=== PATIENT | female | born 1965 | race Caucasian/White ===

== ENCOUNTER 2016-05-02 18:07 | Inpatient (IN) | payer BC ==
[~2016-05-02] VITALS: Ht 154.9 cm; Wt 82.4 kg
[~2016-05-02 18:07] MED LIST: AMOXICILLIN500 M1 PO; AMOXICILLIN500 MG PO; ASPIR 8181 M1 PO; ASPIRIN E.C.81 M2 PO; ASPIRIN81 M1 PO; ATORVASTATIN CA20 MG PO; Aspirin E.C. PO; CINNAMON PLUS1 EACH PO; CIPRO500 MG PO; CRANBERRY500 M3 PO; Ceftin PO; ENDOCET 5-3251 EACH PO; FLONASE16 G1 BOTH NARES; FLOVENT 22120 INHALA IH; GLUCOTROL XL5 MG PO; GLUCOTROL5 MG PO; Glucophage PO; Glucotrol PO; INDOCIN25 MG PO; LEVAQUIN750 MG PO; LIPITOR40 MG PO; LISINOPRIL10 MG PO; LO-DOSE ASPIRIN81 M1 PO; Levaquin PO; MECLIZINE HCL25 MG PO; METFORMIN HCL1000 MG PO; METFORMIN HCL500 M4 PO; METFORMIN HCL500 MG PO; MUCUS ER600 MG PO; MUCUS RELIEF600 M1 PO; PAXIL20 MG PO; PRAVASTATIN SOD80 MG PO; PROTONIX40 MG PO; PROZAC10 MG PO; PYRIDIUM200 MG PO; Pravachol PO; ROBITUSSIN NIG118 ML PO; SIMVASTATIN40 MG PO; TESSALON PERLE100 MG PO; TRULICITY1.5 MG/0.5 SC; TYLENOL EXTRA500 MG PO; ULTRAM50 MG PO; Ultram PO; Vicodin,Lortab 5/500 PO; WOMEN'S DAILY1 EAC4 PO; ZESTRIL,PRINIVI10 M1 PO; ZESTRIL,PRINIVI10 MG PO; ZITHROMAX Z-PA250 MG PO; ZITHROMAX250 MG PO; ZOFRAN4 MG PO; Zocor PO
[2016-05-02 19:00] LABS: POINT-OF-CARE METER ID UU13113778
[2016-05-02 20:26] LABS: ADD MIUA? YES; BILIRUBIN NEGATIVE; BLOOD NEGATIVE; COLOR YELLOW ((YELLOW)); GLUCOSE (STRIP) NEGATIVE; KETONES TRACE; LEUKOCYTES MODERATE; NITRITE POSITIVE; PH, URINE 7.5 (5-8); PROTEIN (STRIP) 30; SPECIFIC GRAVITY 1.024 (1.000-1.030)
[2016-05-02 21:09] LABS: BACTERIA NONE SEEN; CASTS NONE SEEN /LPF; CRYSTALS NONE SEEN; EPITHELIAL CELLS NONE SEEN; MUCUS NONE SEEN; RED BLOOD CELLS NONE SEEN /HPF (0-5); UCUL ADDED? NO
[2016-05-02 21:23] LABS: HEMATOCRIT 44.3 % (36.0-46.0); MCH 31.5 PG (29.0-34.0); MCHC 34.1 G/DL (30.0-36.0); MCV 92.3 FL (83-99); MEAN PLAT.VOLUME 10.3 uM^3 (9.5-12.4); PLATELET COUNT 662 K/uL (156-360); RBC DIS.WIDTH-SD 45.3 % (39-53); WHITE BLOOD COUNT 26.8 K/uL (4.1-10.2)
[2016-05-02 21:28] LABS: CHLORIDE 95 mEq/L (99-109)
[2016-05-02 21:29] LABS: POTASSIUM 4.7 mEq/L (3.7-5.4); SODIUM 135 mEq/L (136-147)
[2016-05-02 21:31] LABS: GLUCOSE 225 mg/dL (70-99)
[2016-05-02 21:32] LABS: ANION GAP 14 MEQ/L (2-14)
[2016-05-02 21:33] LABS: TOTAL BILIRUBIN 0.7 mg/dL (0.0-1.0)
[2016-05-02 21:34] LABS: ALKALINE PHOSPHATASE 103 IU/L (3-129); GFR ESTIMATE (CALCULATED) > 59 mL/min/
[2016-05-02 21:35] LABS: UREA NITROGEN (BUN) 18 mg/dL (9-23)
[2016-05-02 21:45] LABS: QUANTITATIVE HCG < 4.0 MIU/ML
[2016-05-02] MEDS ORDERED: PAROXETINE HCL20 MG PO (22:19)
[2016-05-02] MEDS ORDERED: ASPIR 8181 M1 PO (22:19)
[2016-05-02] MEDS ORDERED: LISINOPRIL10 MG PO (22:19)
[2016-05-02] MEDS ORDERED: ATORVASTATIN CA40 MG PO (22:19)
[2016-05-02] MEDS ORDERED: TRULICITY1.5 MG/0.5 SC (22:20)
[2016-05-02] MEDS ORDERED: WOMEN'S DAILY1 EAC4 PO (22:20)
[2016-05-02] MEDS ORDERED: INDOCIN25 MG PO (22:20)
[2016-05-02] MEDS ORDERED: CRANBERRY500 M2 PO (22:21)
[2016-05-02] MEDS ORDERED: METFORMIN HCL500 MG PO (22:21)
[2016-05-02] MEDS ORDERED: CINNAMON PLUS1 EACH PO (22:21)
[2016-05-02] MEDS ORDERED: PANTOPRAZOLE SO40 MG PO (22:21)
[2016-05-02] MEDS ORDERED: GLIMEPIRIDE2 MG PO (22:22)
[2016-05-02 23:50] LABS: INFLUENZA A VIRAL ANTIGEN NEGATIVE; INFLUENZA B VIRAL ANTIGEN NEGATIVE
[2016-05-03 09:47] VITALS: BP 101/57
[2016-05-03 14:38] VITALS: BP 92/47
[2016-05-03 16:26] VITALS: BP 98/65
[2016-05-03 17:48] VITALS: BP 105/58
[2016-05-03 19:25] VITALS: BP 112/61
[2016-05-03 23:20] VITALS: BP 130/75; BP 98/63
[2016-05-04 03:20] VITALS: BP 121/66
[2016-05-04 07:47] VITALS: BP 125/71
[2016-05-04 09:11] LABS: DELETE MACHINE DIFF? YES
[2016-05-04 09:12] LABS: MCH 31.2 PG (29.0-34.0); MCHC 32.6 G/DL (30.0-36.0); MCV 95.8 FL (83-99); MEAN PLAT.VOLUME 10.2 uM^3 (9.5-12.4); PLATELET COUNT 517 K/uL (156-360); RBC DIS.WIDTH-CV 14.1 % (11.8-14.6); RBC DIS.WIDTH-SD 48.4 % (39-53); RED BLOOD COUNT 4.07 M/uL (3.80-5.20)
[2016-05-04 09:16] LABS: WHITE BLOOD COUNT 11.2 K/uL (4.1-10.2)
[2016-05-04 09:28] LABS: ANION GAP 8 MEQ/L (2-14); CHLORIDE 101 MEQ/L (99-109); GFR ESTIMATE (CALCULATED) > 59 mL/min/; GLUCOSE 194 mg/dL (70-99); POTASSIUM 4.9 MEQ/L (3.7-5.4); SAMPLE HEMOLYSIS CHECK 0; SAMPLE ICTERIC CHECK 0; SAMPLE LIPEMIA CHECK 0; SODIUM 137 MEQ/L (136-147); UREA NITROGEN (BUN) 6 mg/dL (9-23)
[2016-05-04 10:01] LABS: ABS NEUTROPHIL COUNT 7.39; BURR CELLS OCC; EOSINOPHIL ABS CT 0.11; MACROCYTES OCC; PLAT.SUFFICIENCY INCREASED; USER ID CCL
[2016-05-04 11:47] VITALS: BP 131/81
[2016-05-04 15:24] VITALS: BP 111/65
[2016-05-04 23:30] VITALS: BP 120/62
[2016-05-05 07:12] LABS: EOSINOPHIL (%) 1.9 % (0-5); EOSINOPHIL COUNT 0.2 K/uL (0-0.3); HEMATOCRIT 37.2 % (36.0-46.0); IMMATURE GRANULOCYTE (%) 0.2 % (0.0-0.7); LYMPHOCYTE COUNT 4.8 K/uL (1.0-2.8); MCH 30.6 PG (29.0-34.0); MCHC 32.3 G/DL (30.0-36.0); MCV 94.9 FL (83-99); MEAN PLAT.VOLUME 10.1 uM^3 (9.5-12.4); NEUTROPHIL COUNT 6.7 K/uL (1.8-6.4); PLATELET COUNT 549 K/uL (156-360); RBC DIS.WIDTH-CV 14.1 % (11.8-14.6); RBC DIS.WIDTH-SD 48.5 % (39-53); RED BLOOD COUNT 3.92 M/uL (3.80-5.20); WHITE BLOOD COUNT 12.8 K/uL (4.1-10.2)
[2016-05-05 07:39] LABS: ANION GAP 7 MEQ/L (2-14); CHLORIDE 101 MEQ/L (99-109); GFR ESTIMATE (CALCULATED) > 59 mL/min/; GLUCOSE 235 mg/dL (70-99); POTASSIUM 4.6 MEQ/L (3.7-5.4); SAMPLE HEMOLYSIS CHECK 0; SAMPLE ICTERIC CHECK 0; SAMPLE LIPEMIA CHECK 0; SODIUM 138 MEQ/L (136-147); UREA NITROGEN (BUN) 9 mg/dL (9-23)
[2016-05-05 07:53] VITALS: BP 118/67
== END 2016-05-05 13:30 | disposition home or self-care (01) | DRG 872 ==
LOC: EME 18:07 → EDOF 05-03 04:34 → 2EAST 05-03 04:34 → EDOF 05-03 09:53 → 2EAST 05-03 17:11
PROVIDERS: Hospitalist; Internal Medicine; Physician Assistant
DX: A41.9 Sepsis, unspecified organism (principal); E87.2 Acidosis; N10 Acute pyelonephritis; E66.01 Morbid (severe) obesity due to excess calories; E11.9 Type 2 diabetes mellitus without complications; N20.0 Calculus of kidney; I10 Essential (primary) hypertension; Z79.4 Long term (current) use of insulin; F17.210 Nicotine dependence, cigarettes, uncomplicated; E78.5 Hyperlipidemia, unspecified; Z90.81 Acquired absence of spleen; Z90.49 Acquired absence of other specified parts of digestive tract; Z87.440 Personal history of urinary (tract) infections; Z68.34 Body mass index [BMI] 34.0-34.9, adult
CPT/HCPCS: 71020; 74176; 80048; 80053; 81003; 82948; 83605; 84702; 85025; 85027; 87040; 87502; 99281; 99285; J0692; J0696; J1650; J1815; J7050; J7120

== ENCOUNTER 2016-07-03 12:18 | Emergency (ER) | payer BC ==
[~2016-07-03] VITALS: Ht 154.9 cm; Wt 82.2 kg
[~2016-07-03 12:18] MED LIST changes: +ATORVASTATIN CA40 MG PO; +CRANBERRY500 M2 PO; +GLIMEPIRIDE2 MG PO; +PANTOPRAZOLE SO40 MG PO; +PAROXETINE HCL20 MG PO
[2016-07-03 13:23] LABS: ADD MIUA? YES; BILIRUBIN NEGATIVE; BLOOD MODERATE; COLOR YELLOW ((YELLOW)); GLUCOSE (STRIP) NEGATIVE; KETONES NEGATIVE; LEUKOCYTES TRACE; NITRITE NEGATIVE; PROTEIN (STRIP) NEGATIVE; SPECIFIC GRAVITY 1.012 (1.000-1.030); UROBILINOGEN 0.2 MG/DL (0.2-1.0)
[2016-07-03 13:33] LABS: BACTERIA NONE SEEN /HPF; EPITHELIAL CELLS RARE /HPF; HYALINE CASTS 0-5 /LPF; MUCUS TRACE /LPF; UCUL ADDED? NO; WHITE BLOOD CELLS 0-5 /HPF (0-5)
[2016-07-03 14:21] LABS: HEMATOCRIT 42.1 % (36.0-46.0); MCH 30.6 PG (29.0-34.0); MCHC 33.3 G/DL (30.0-36.0); MCV 92.1 FL (83-99); MEAN PLAT.VOLUME 10.2 uM^3 (9.5-12.4); PLATELET COUNT 519 K/uL (156-360); RBC DIS.WIDTH-CV 13.1 % (11.8-14.6); RED BLOOD COUNT 4.57 M/uL (3.80-5.20)
[2016-07-03 14:22] LABS: WHITE BLOOD COUNT 19.2 K/uL (4.1-10.2)
[2016-07-03 14:29] LABS: CHLORIDE 99 mEq/L (99-109); POTASSIUM 4.6 mEq/L (3.7-5.4); SODIUM 140 mEq/L (136-147)
[2016-07-03 14:31] LABS: GLUCOSE 128 mg/dL (70-99)
[2016-07-03 14:32] LABS: ANION GAP 13 MEQ/L (2-14)
[2016-07-03 14:35] LABS: GFR ESTIMATE (CALCULATED) > 59 mL/min/
[2016-07-03 14:36] LABS: UREA NITROGEN (BUN) 10 mg/dL (9-23)
[2016-07-03] MEDS ORDERED: KEFLEX500 MG PO (16:10)
[2016-07-03] MEDS ORDERED: ZOFRAN ODT4 MG PO (16:10)
[2016-07-03 16:38] VITALS: BP 137/97
== END 2016-07-03 16:39 | disposition home or self-care (01) ==
LOC: EME 12:18
PROVIDERS: Physician Assistant
DX: N20.2 Calculus of kidney with calculus of ureter (principal)
CPT/HCPCS: 74176; 80048; 81003; 85027; 99281; 99284; J0696

== ENCOUNTER 2016-07-13 04:51 | Inpatient (IN) | payer BC ==
[~2016-07-13] VITALS: Ht 154.9 cm; Wt 83.2 kg
[~2016-07-13 04:51] MED LIST changes: +KEFLEX500 MG PO; +ZOFRAN ODT4 MG PO
[2016-07-13 05:56] LABS: BASOPHIL COUNT 0.1 K/uL (0-0.1); EOSINOPHIL (%) 1.2 % (0-5); EOSINOPHIL COUNT 0.3 K/uL (0-0.3); HEMATOCRIT 41.6 % (36.0-46.0); IMMATURE GRANULOCYTE (%) 0.5 % (0.0-0.7); IMMATURE GRANULOCYTE COUNT 0.1 K/uL; INSTRUMENT ABS NEUTROPHIL CT 19.1 K/uL; LYMPHOCYTE COUNT 2.2 K/uL (1.0-2.8); MCH 30.4 PG (29.0-34.0); MCHC 32.7 G/DL (30.0-36.0); MCV 92.9 FL (83-99); MEAN PLAT.VOLUME 10.2 uM^3 (9.5-12.4); MONOCYTE (%) 2.5 % (3-12); MONOCYTE COUNT 0.6 K/uL (0-0.8); NEUTROPHIL (%) 85.5 % (45-76); NEUTROPHIL COUNT 19.1 K/uL (1.8-6.4); PLATELET COUNT 603 K/uL (156-360); RBC DIS.WIDTH-CV 12.9 % (11.8-14.6); RBC DIS.WIDTH-SD 43.8 % (39-53); RED BLOOD COUNT 4.48 M/uL (3.80-5.20); WHITE BLOOD COUNT 22.3 K/uL (4.1-10.2)
[2016-07-13 05:56] LABS: ADD MIUA? YES; BILIRUBIN NEGATIVE; BLOOD SMALL; COLOR YELLOW ((YELLOW)); GLUCOSE (STRIP) 150; KETONES 5; LEUKOCYTES NEGATIVE; NITRITE NEGATIVE; PROTEIN (STRIP) NEGATIVE; SPECIFIC GRAVITY 1.019 (1.000-1.030); UROBILINOGEN 0.2 MG/DL (0.2-1.0)
[2016-07-13 06:06] LABS: CHLORIDE 104 mEq/L (99-109); POTASSIUM 4.3 mEq/L (3.7-5.4); SODIUM 137 mEq/L (136-147)
[2016-07-13 06:07] LABS: BACTERIA NONE SEEN /HPF; EPITHELIAL CELLS RARE /HPF; MUCUS TRACE /LPF; RED BLOOD CELLS 0-5 /HPF (0-5); UCUL ADDED? NO; WHITE BLOOD CELLS 0-5 /HPF (0-5)
[2016-07-13 06:08] LABS: GLUCOSE 214 mg/dL (70-99)
[2016-07-13 06:09] LABS: ANION GAP 11 MEQ/L (2-14)
[2016-07-13 06:10] LABS: TOTAL BILIRUBIN 0.3 mg/dL (0.0-1.0)
[2016-07-13 06:12] LABS: ALKALINE PHOSPHATASE 79 IU/L (3-129); GFR ESTIMATE (CALCULATED) > 59 mL/min/
[2016-07-13 06:13] LABS: UREA NITROGEN (BUN) 15 mg/dL (9-23)
[2016-07-13 06:15] LABS: LIPASE 41 U/L (1.0-51.0)
[2016-07-13 08:08] LABS: C DIFF TOXIN NEGATIVE (NEGATIVE)
[2016-07-13 08:09] LABS: PROBE CHECK PASS; SPECIMEN PROCESSING CONTROL PASS
[2016-07-13] MEDS ORDERED: GLIMEPIRIDE2 MG PO (08:54)
[2016-07-13] MEDS ORDERED: ULTRAM50 MG PO (08:55)
[2016-07-13] MEDS ORDERED: ANTIVERT25 MG PO (08:55)
[2016-07-13] MEDS ORDERED: CINNAMON PLUS1 EACH PO (08:56)
[2016-07-13 09:24] VITALS: BP 121/64
[2016-07-13 11:14] VITALS: BP 119/69
[2016-07-13 12:15] LABS: POINT-OF-CARE METER ID UU14162513
[2016-07-13 15:45] VITALS: BP 108/57
[2016-07-13 16:09] VITALS: BP 108/60
[2016-07-13 16:43] LABS: INFLUENZA A VIRAL ANTIGEN NEGATIVE; INFLUENZA B VIRAL ANTIGEN NEGATIVE
[2016-07-13 16:53] LABS: POINT-OF-CARE METER ID UU14188577
[2016-07-13 19:27] VITALS: BP 131/60
[2016-07-13 23:49] VITALS: BP 137/75
[2016-07-14 04:46] LABS: HEMATOCRIT 38.5 % (36.0-46.0); MCH 30.5 PG (29.0-34.0); MCHC 32.5 G/DL (30.0-36.0); MCV 93.9 FL (83-99); MEAN PLAT.VOLUME 9.9 uM^3 (9.5-12.4); PLATELET COUNT 514 K/uL (156-360); RBC DIS.WIDTH-CV 13.1 % (11.8-14.6); RBC DIS.WIDTH-SD 44.8 % (39-53); WHITE BLOOD COUNT 15.7 K/uL (4.1-10.2)
[2016-07-14 05:02] LABS: CHLORIDE 107 mEq/L (99-109); POTASSIUM 3.6 mEq/L (3.7-5.4); SODIUM 138 mEq/L (136-147)
[2016-07-14 05:04] LABS: GLUCOSE 154 mg/dL (70-99)
[2016-07-14 05:06] LABS: ANION GAP 9 MEQ/L (2-14)
[2016-07-14 05:08] LABS: ALKALINE PHOSPHATASE 64 IU/L (3-129); GFR ESTIMATE (CALCULATED) > 59 mL/min/
[2016-07-14 05:09] LABS: UREA NITROGEN (BUN) 7 mg/dL (9-23)
[2016-07-14 05:10] LABS: TOTAL BILIRUBIN 0.2 mg/dL (0.0-1.0)
[2016-07-14 06:33] LABS: POINT-OF-CARE METER ID UU14149397
[2016-07-14 08:10] VITALS: BP 131/70
[2016-07-14 11:24] VITALS: BP 114/66
[2016-07-14 11:43] LABS: POINT-OF-CARE METER ID UU14188577
[2016-07-14 16:02] VITALS: BP 107/65
[2016-07-14 16:37] LABS: POINT-OF-CARE METER ID UU14188577
[2016-07-14 19:37] VITALS: BP 100/59
[2016-07-14 23:23] VITALS: BP 107/69
[2016-07-15 03:50] VITALS: BP 98/56
[2016-07-15 06:20] LABS: POINT-OF-CARE METER ID UU14149397
[2016-07-15 07:06] LABS: HEMATOCRIT 35.8 % (36.0-46.0); MCH 30.4 PG (29.0-34.0); MCHC 32.4 G/DL (30.0-36.0); MCV 93.7 FL (83-99); MEAN PLAT.VOLUME 10.8 uM^3 (9.5-12.4); PLATELET COUNT 450 K/uL (156-360); RBC DIS.WIDTH-CV 13.3 % (11.8-14.6); RBC DIS.WIDTH-SD 45.7 % (39-53); RED BLOOD COUNT 3.82 M/uL (3.80-5.20)
[2016-07-15 07:08] LABS: ANION GAP 8 MEQ/L (2-14); CHLORIDE 107 MEQ/L (99-109); GFR ESTIMATE (CALCULATED) > 59 mL/min/; GLUCOSE 130 mg/dL (70-99); POTASSIUM 3.9 MEQ/L (3.7-5.4); SAMPLE HEMOLYSIS CHECK 0; SAMPLE ICTERIC CHECK 0; SAMPLE LIPEMIA CHECK 0; SODIUM 139 MEQ/L (136-147); UREA NITROGEN (BUN) 4 mg/dL (9-23); WHITE BLOOD COUNT 9.5 K/uL (4.1-10.2)
[2016-07-15 07:59] VITALS: BP 122/69
[2016-07-15 11:40] VITALS: BP 117/60
[2016-07-15 16:10] VITALS: BP 120/67
[2016-07-15 20:26] VITALS: BP 123/62
[2016-07-15 23:53] VITALS: BP 117/71
[2016-07-16 03:31] VITALS: BP 103/55
[2016-07-16 07:11] LABS: POINT-OF-CARE METER ID UU14149397
[2016-07-16 08:02] VITALS: BP 131/70
[2016-07-16] MEDS ORDERED: LOPERAMIDE2 MG PO (11:08)
[2016-07-16 11:21] LABS: POINT-OF-CARE METER ID UU14149397
[2016-07-16 12:25] VITALS: BP 129/78
== END 2016-07-16 12:27 | disposition home or self-care (01) | DRG 872 ==
LOC: EME 04:51 → EDOF 07:45 → 5WEST 09:10 → 3EAST 15:58
PROVIDERS: Emergency Medicine; Family Medicine; Internal Medicine; Nurse Practitioner Family; Student in an Organized Health Care Education/Training Program
DX: A41.9 Sepsis, unspecified organism (principal); E87.2 Acidosis; A08.39 Other viral enteritis; K52.9 Noninfective gastroenteritis and colitis, unspecified; E11.9 Type 2 diabetes mellitus without complications; I10 Essential (primary) hypertension; E66.9 Obesity, unspecified; Z68.34 Body mass index [BMI] 34.0-34.9, adult; K76.0 Fatty (change of) liver, not elsewhere classified; D73.89 Other diseases of spleen; R74.0 Nonspecific elevation of levels of transaminase and lactic acid dehydrogenase [LDH]; Z90.81 Acquired absence of spleen; F17.210 Nicotine dependence, cigarettes, uncomplicated; Z87.442 Personal history of urinary calculi
CPT/HCPCS: 71020; 74177; 80048; 80053; 81003; 82948; 83605; 83690; 85025; 85027; 87040; 87493; 87502; 87506; 99281; 99285; J0456; J0744; J1650; J1815; J7030; S0028; S0030

== ENCOUNTER 2016-08-30 21:46 | Inpatient (IN) | payer BC ==
[~2016-08-30] VITALS: Ht 154.9 cm; Wt 81.1 kg
[~2016-08-30 21:46] MED LIST changes: +ANTIVERT25 MG PO; +LOPERAMIDE2 MG PO
[2016-08-30 22:40] LABS: MEAN PLAT.VOLUME 10.8 uM^3 (9.5-12.4); PLATELET COUNT 568 K/uL (156-360)
[2016-08-30 22:47] LABS: HEMATOCRIT 47.6 % (36.0-46.0); MCH 30.8 PG (29.0-34.0); MCHC 33.2 G/DL (30.0-36.0); MCV 92.8 FL (83-99); RBC DIS.WIDTH-CV 13.4 % (11.8-14.6); RBC DIS.WIDTH-SD 45.3 % (39-53); RED BLOOD COUNT 5.13 M/uL (3.80-5.20); WHITE BLOOD COUNT 35.4 K/uL (4.1-10.2)
[2016-08-30 22:53] LABS: CHLORIDE 99 mEq/L (99-109); POTASSIUM 4.2 mEq/L (3.7-5.4); SODIUM 136 mEq/L (136-147)
[2016-08-30 22:55] LABS: GLUCOSE 290 mg/dL (70-99)
[2016-08-30 22:56] LABS: ANION GAP 17 MEQ/L (2-14)
[2016-08-30 22:57] LABS: TOTAL BILIRUBIN 0.5 mg/dL (0.0-1.0)
[2016-08-30 22:59] LABS: ALKALINE PHOSPHATASE 104 IU/L (3-129); GFR ESTIMATE (CALCULATED) 42 mL/min/
[2016-08-30 23:00] LABS: UREA NITROGEN (BUN) 24 mg/dL (9-23)
[2016-08-30 23:08] LABS: QUANTITATIVE HCG < 4.0 MIU/ML
[2016-08-31 02:15] LABS: ADD MIUA? YES; BILIRUBIN NEGATIVE; BLOOD NEGATIVE; COLOR YELLOW ((YELLOW)); GLUCOSE (STRIP) NEGATIVE; KETONES NEGATIVE; LEUKOCYTES NEGATIVE; NITRITE NEGATIVE; PROTEIN (STRIP) 100; SPECIFIC GRAVITY 1.011 (1.000-1.030); UROBILINOGEN 0.2 MG/DL (0.2-1.0)
[2016-08-31 02:19] LABS: BACTERIA RARE /HPF; EPITHELIAL CELLS RARE /HPF; MUCUS TRACE /LPF; RED BLOOD CELLS 0-5 /HPF (0-5); UCUL ADDED? NO
[2016-08-31] MEDS ORDERED: ALIGN4 MG PO (02:23)
[2016-08-31 09:50] LABS: EOSINOPHIL COUNT 0.2 K/uL (0-0.3); HEMATOCRIT 36.4 % (36.0-46.0); IMMATURE GRANULOCYTE (%) 0.4 % (0.0-0.7); IMMATURE GRANULOCYTE COUNT 0.1 K/uL; INSTRUMENT ABS NEUTROPHIL CT 12.2 K/uL; MCH 30.4 PG (29.0-34.0); MCHC 32.7 G/DL (30.0-36.0); MCV 92.9 FL (83-99); MEAN PLAT.VOLUME 10.2 uM^3 (9.5-12.4); MONOCYTE (%) 5.8 % (3-12); MONOCYTE COUNT 1.1 K/uL (0-0.8); NEUTROPHIL (%) 65.7 % (45-76); NEUTROPHIL COUNT 12.2 K/uL (1.8-6.4); PLATELET COUNT 474 K/uL (156-360); RBC DIS.WIDTH-CV 13.7 % (11.8-14.6); RBC DIS.WIDTH-SD 46.2 % (39-53)
[2016-08-31 09:52] LABS: RED BLOOD COUNT 3.92 M/uL (3.80-5.20); WHITE BLOOD COUNT 18.5 K/uL (4.1-10.2)
[2016-08-31] MEDS ORDERED: METFORMIN HCL500 MG PO (09:52)
[2016-08-31] MEDS ORDERED: PROAIR HFA8.5 GM IH (09:53)
[2016-08-31 09:55] LABS: CHLORIDE 107 mEq/L (99-109); SODIUM 138 mEq/L (136-147)
[2016-08-31 09:56] LABS: POINT-OF-CARE METER ID UU13113702
[2016-08-31] MEDS ORDERED: CINNAMON PLUS1 EACH PO (09:56)
[2016-08-31 09:59] LABS: ANION GAP 7 MEQ/L (2-14)
[2016-08-31 10:00] LABS: TOTAL BILIRUBIN 0.6 mg/dL (0.0-1.0)
[2016-08-31 10:02] LABS: UREA NITROGEN (BUN) 13 mg/dL (9-23)
[2016-08-31 10:03] LABS: ALKALINE PHOSPHATASE 65 IU/L (3-129); GFR ESTIMATE (CALCULATED) > 59 mL/min/; GLUCOSE 139 mg/dL (70-99)
[2016-08-31 14:02] VITALS: BP 86/42
[2016-08-31 15:29] VITALS: BP 98/60
[2016-08-31 15:39] LABS: POINT-OF-CARE METER ID UU14162508
[2016-08-31 20:08] VITALS: BP 102/63
[2016-08-31 21:49] LABS: POINT-OF-CARE METER ID UU14162508
[2016-09-01 00:39] VITALS: BP 108/60
[2016-09-01 04:33] VITALS: BP 126/71
[2016-09-01 05:25] LABS: POINT-OF-CARE METER ID UU14162508
[2016-09-01 07:11] LABS: POINT-OF-CARE METER ID UU14162508
[2016-09-01 07:20] VITALS: BP 123/61
[2016-09-01 08:27] LABS: EOSINOPHIL COUNT 0.2 K/uL (0-0.3); HEMATOCRIT 36.2 % (36.0-46.0); IMMATURE GRANULOCYTE (%) 0.3 % (0.0-0.7); INSTRUMENT ABS NEUTROPHIL CT 5.5 K/uL; LYMPHOCYTE COUNT 4.9 K/uL (1.0-2.8); MCH 30.2 PG (29.0-34.0); MCHC 32.6 G/DL (30.0-36.0); MCV 92.6 FL (83-99); MEAN PLAT.VOLUME 10.4 uM^3 (9.5-12.4); MONOCYTE (%) 7.3 % (3-12); MONOCYTE COUNT 0.8 K/uL (0-0.8); NEUTROPHIL (%) 47.8 % (45-76); NEUTROPHIL COUNT 5.5 K/uL (1.8-6.4); PLATELET COUNT 458 K/uL (156-360); RBC DIS.WIDTH-CV 13.5 % (11.8-14.6); RBC DIS.WIDTH-SD 45.3 % (39-53); RED BLOOD COUNT 3.91 M/uL (3.80-5.20); WHITE BLOOD COUNT 11.6 K/uL (4.1-10.2)
[2016-09-01 08:45] LABS: ANION GAP 8 MEQ/L (2-14); CHLORIDE 105 MEQ/L (99-109); GFR ESTIMATE (CALCULATED) > 59 mL/min/; GLUCOSE 130 mg/dL (70-99); POTASSIUM 4.4 MEQ/L (3.7-5.4); SAMPLE HEMOLYSIS CHECK 0; SAMPLE ICTERIC CHECK 0; SAMPLE LIPEMIA CHECK 0; SODIUM 141 MEQ/L (136-147); UREA NITROGEN (BUN) 8 mg/dL (9-23)
== END 2016-09-01 09:18 | disposition home or self-care (01) | DRG 392 ==
LOC: EME 21:46 → EDOF 08-31 05:11 → 2EASTP 08-31 13:40
PROVIDERS: Emergency Medicine; Internal Medicine; Student in an Organized Health Care Education/Training Program
DX: A08.4 Viral intestinal infection, unspecified (principal); N17.9 Acute kidney failure, unspecified; I10 Essential (primary) hypertension; R65.10 Systemic inflammatory response syndrome (SIRS) of non-infectious origin without acute organ dysfunction; R11.2 Nausea with vomiting, unspecified; E78.5 Hyperlipidemia, unspecified; Z90.49 Acquired absence of other specified parts of digestive tract
CPT/HCPCS: 71010; 74177; 80048; 80053; 81003; 82948; 83605; 83630; 84702; 85025; 85027; 87040; 87086; 87177; 87493; 93005; 99202; 99281; 99284; J0456; J0692; J1644; J1815; J7030; J7050

== ENCOUNTER 2017-06-03 18:48 | Emergency (ER) | payer BC ==
[~2017-06-03] VITALS: Ht 154.9 cm; Wt 84.6 kg
[~2017-06-03 18:48] MED LIST changes: +ALIGN4 MG PO; +PROAIR HFA8.5 GM IH
[2017-06-03 21:37] LABS: BASOPHIL (%) 0.2 % (0-1); EOSINOPHIL (%) 1.1 % (0-5); EOSINOPHIL COUNT 0.1 K/uL (0-0.3); HEMATOCRIT 41.5 % (36.0-46.0); HEMOGLOBIN 14.1 G/DL (11.9-15.5); IMMATURE GRANULOCYTE (%) 0.2 % (0.0-0.7); LYMPHOCYTE (%) 40.1 % (15-42); LYMPHOCYTE COUNT 4.9 K/uL (1.0-2.8); MCH 31.5 PG (29.0-34.0); MCV 92.6 FL (83-99); MONOCYTE (%) 7.7 % (3-12); NEUTROPHIL (%) 50.7 % (45-76); NEUTROPHIL COUNT 6.3 K/uL (1.8-6.4); PLATELET COUNT 429 K/uL (156-360); RED BLOOD COUNT 4.48 M/uL (3.80-5.20); WHITE BLOOD COUNT 12.3 K/uL (4.1-10.2)
[2017-06-03 21:47] LABS: CHLORIDE 101 mEq/L (99-109); POTASSIUM 3.9 mEq/L (3.7-5.4); SODIUM 138 mEq/L (136-147)
[2017-06-03 21:49] LABS: GLUCOSE 154 mg/dL (70-99)
[2017-06-03 21:53] LABS: CREATININE 0.6 mg/dL (0.6-1.3); GFR ESTIMATE (CALCULATED) > 59 mL/min/; UREA NITROGEN (BUN) 11 mg/dL (9-23)
[2017-06-03 21:57] LABS: APPEARANCE CLEAR ((CLEAR)); BILIRUBIN NEGATIVE; BLOOD NEGATIVE; COLOR YELLOW ((YELLOW)); GLUCOSE (STRIP) 50; KETONES NEGATIVE; LEUKOCYTES NEGATIVE; NITRITE NEGATIVE; PROTEIN (STRIP) NEGATIVE; SPECIFIC GRAVITY 1.012 (1.000-1.030); UROBILINOGEN 0.2 MG/DL (0.2-1.0)
[2017-06-03] MEDS ORDERED: ZOFRAN ODT8 MG PO (22:32)
[2017-06-03] MEDS ORDERED: PREDNISONE20 MG PO (22:32)
[2017-06-03] MEDS ORDERED: BENTYL20 MG PO (22:32)
[2017-06-03] MEDS ORDERED: TAMIFLU75 MG PO (22:32)
[2017-06-03] MEDS ORDERED: LEVAQUIN500 MG PO (22:32)
[2017-06-03 22:47] VITALS: BP 134/81
== END 2017-06-03 22:48 | disposition home or self-care (01) ==
LOC: EME 18:48
PROVIDERS: Physician Assistant
DX: J84.9 Interstitial pulmonary disease, unspecified (principal); E11.9 Type 2 diabetes mellitus without complications; Z87.891 Personal history of nicotine dependence; Z90.81 Acquired absence of spleen; Z88.2 Allergy status to sulfonamides
CPT/HCPCS: 71046; 80048; 81003; 83605; 85025; 87040; 87502; 93005; 99281; 99284; J7512